=== PATIENT | male | born 1935 | race Caucasian/White ===

== ENCOUNTER 2017-06-12 06:15 | Emergency (ER) | payer MEDICARE ==
[~2017-06-12 06:15] MED LIST: ASCO100033 PO; ASPI-555 PO; CLOP75TA14 PO; DOXY100T2 PO; ESOM40CA PO; FLAX OIL PO; FURO40TA5 PO; GINK120C PO; IBUP1TAB71 PO; KRIL1CAP12 PO; LACT100C2 PO; LEVO100T12 PO; MAGN500P34 MC; MELA10TA2 PO; METO50TA9 PO; OMEGA PO; POTA10CA44 PO; PYRI25TA3 PO; RAMI2.5C15 PO; ROSU10TA PO; SOTA80TA PO; TEMA30CA PO; UBID200C18 PO; [UNRECOGNIZED DRUG - CODE] PO
[2017-06-12] MEDS ORDERED: SODIUM CHLORIDE 0.9% 1000ML 1,000 ML IV ONE (07:18)
[2017-06-12] MEDS ORDERED: METOCLOPRAMIDE 10 MG/2 ML VIAL ONE (07:18)
[2017-06-12 07:39] LABS: BASOPHILS % (AUTO) 0.2 % (0.0-5.0); EOSINOPHILS % (AUTO) 0.3 % (0.0-8.0); HEMATOCRIT 38.4 % (42-54); MEAN CORPUSCULAR HEMOGLOBIN 30.8 pg (27.0-33.0); MEAN CORPUSCULAR HGB CONC 33.8 g/dL (32.0-36.0); MEAN CORPUSCULAR VOLUME 91.3 fL (79-99); MONOCYTES % (AUTO) 6.4 % (3.0-13.0); NEUTROPHILS % (AUTO) 87.1 % (40.0-77.0); PLATELET COUNT (AUTO) 149 K/uL (130-400); RED BLOOD CELL COUNT(AUTO) 4.21 MIL/uL (4.50-6.20); RED CELL DISTRIBUTION WIDTH 15.4 % (11.0-15.5); WHITE BLOOD COUNT (AUTO) 13.4 K/uL (4.8-10.8)
[2017-06-12 07:48] LABS: CREATININE 1.5 mg/dL (0.5-1.5); POTASSIUM 3.5 mmol/L (3.5-5.1)
[2017-06-12 07:52] LABS: ALBUMIN 3.3 g/dL (3.5-5.0); BILIRUBIN,TOTAL 1.6 mg/dL (0.2-1.0); TOTAL PROTEIN, SERUM 6.5 g/dL (6.0-8.3)
[2017-06-12 08:22] LABS: APPEARANCE,URINE Cloudy (CLEAR); BILIRUBIN,URINE Negative (NEGATIVE); COLOR,URINE Dark Yellow (YELLOW); GLUCOSE, URINE (UA) Negative (NEGATIVE); KETONES,URINE Trace mg/dL (NEGATIVE); LEUKOCYTE ESTERASE ,URINE Large (NEGATIVE); NITRATE,URINE Positive (NEGATIVE); OCCULT BLOOD,URINE Large (NEGATIVE); PROTEIN,URINE POS 1+ (NEGATIVE)
[2017-06-12 08:41] LABS: BACTERIA,URINE Many /HPF (None Seen); WBC,URINE 26-50 /HPF (0-1)
[2018-02-24] MEDS ORDERED: NITR0.4T50 SL (10:12)
[2018-02-24] MEDS ORDERED: CILO100T PO (10:12)
[2018-02-24] MEDS ORDERED: [UNRECOGNIZED DRUG - CODE] PO (10:12)
== END 2017-06-12 09:54 | disposition home or self-care (01) ==
LOC: EDH 06:15
DX: N39.0 Urinary tract infection, site not specified (principal); R51 Headache; E78.5 Hyperlipidemia, unspecified; Z87.891 Personal history of nicotine dependence
CPT/HCPCS: 36415; 70450; 72125; 80053; 81001; 85025; 87088; 87186; 96361; 96374; 99285; J2765; J7030

== ENCOUNTER 2017-09-03 21:46 | Emergency (ER) | payer MEDICARE ==
[2017-09-03] MEDS ORDERED: ACETAMINOPHEN EXTRA STRENGTH 500 MG TABLET ONE (22:15)
[2017-09-03] MEDS ORDERED: SODIUM CHLORIDE 0.9% 1000ML 1,000 ML IV ONE (22:15)
[2017-09-03 22:17] LABS: BASOPHILS % (AUTO) 0.2 % (0.0-5.0); EOSINOPHILS % (AUTO) 2.3 % (0.0-8.0); HEMATOCRIT 35.4 % (42-54); MEAN CORPUSCULAR HEMOGLOBIN 32.8 pg (27.0-33.0); MEAN CORPUSCULAR HGB CONC 35.4 g/dL (32.0-36.0); MEAN CORPUSCULAR VOLUME 92.6 fL (79-99); MONOCYTES % (AUTO) 8.1 % (3.0-13.0); NEUTROPHILS % (AUTO) 80.4 % (40.0-77.0); NUCLEATED RED BLOOD CELLS 0.1 % (0.0-0.19); PLATELET COUNT (AUTO) 130 K/uL (130-400); RED BLOOD CELL COUNT(AUTO) 3.82 MIL/uL (4.50-6.20); RED CELL DISTRIBUTION WIDTH 15.5 % (11.0-15.5); WHITE BLOOD COUNT (AUTO) 9.3 K/uL (4.8-10.8)
[2017-09-03 22:31] LABS: CREATININE 1.4 mg/dL (0.5-1.5); POTASSIUM 3.5 mmol/L (3.5-5.1)
[2017-09-03] MEDS ORDERED: OSELTAMIVIR PHOSPHATE 75 MG CAP ONE (23:10)
[2018-02-24] MEDS ORDERED: [UNRECOGNIZED DRUG - CODE] PO (10:12)
[2018-02-24] MEDS ORDERED: NITR0.4T50 SL (10:12)
[2018-02-24] MEDS ORDERED: CILO100T PO (10:12)
== END 2017-09-03 23:20 | disposition home or self-care (01) ==
LOC: EDH 21:46
DX: J11.1 Influenza due to unidentified influenza virus with other respiratory manifestations (principal); R11.0 Nausea; E78.5 Hyperlipidemia, unspecified; I25.10 Atherosclerotic heart disease of native coronary artery without angina pectoris; Z95.0 Presence of cardiac pacemaker
CPT/HCPCS: 36415; 71046; 80048; 83605; 84484; 85025; 87804 ×2; 96360; 99285; J7030

== ENCOUNTER → 2017-09-08 | Outpatient (CLI) | payer MEDICARE ==
[~2017-09-08] MED LIST changes: +CILO100T PO; +NITR0.4T50 SL; +[UNRECOGNIZED DRUG - CODE] PO
== END | disposition home or self-care (01) ==
LOC: SHCH 10:29
PROVIDERS: ATTEND Internal Medicine Cardiovascular Disease
DX: I25.10 Atherosclerotic heart disease of native coronary artery without angina pectoris (principal)
CPT/HCPCS: 93880

== ENCOUNTER → 2018-01-29 | Outpatient (CLI) | payer MEDICARE ==
[~2018-01-29] MED LIST changes: +REGADENOSON 0.4 MG/5 ML PF SYG IVP SCH
== END | disposition home or self-care (01) ==
LOC: SHCH 07:45
PROVIDERS: ATTEND Internal Medicine Cardiovascular Disease
DX: I25.119 Atherosclerotic heart disease of native coronary artery with unspecified angina pectoris (principal); R94.31 Abnormal electrocardiogram [ECG] [EKG]
CPT/HCPCS: 78452; 93017; 96374; A9500 ×2; J2785 ×2

== ENCOUNTER → 2018-02-03 | Outpatient (CLI) | payer MEDICARE ==
[~2018-02-03] MED LIST changes: -REGADENOSON 0.4 MG/5 ML PF SYG IVP SCH
== END | disposition home or self-care (01) ==
LOC: SHCH 09:21
PROVIDERS: ATTEND Internal Medicine Cardiovascular Disease
DX: I08.1 Rheumatic disorders of both mitral and tricuspid valves (principal); I25.10 Atherosclerotic heart disease of native coronary artery without angina pectoris; R94.31 Abnormal electrocardiogram [ECG] [EKG]
CPT/HCPCS: 93306

== ENCOUNTER 2018-02-25 05:48 | Day surgery (SDC) | payer MEDICARE ==
[2018-02-24 09:47] VITALS: BP 124/70
[2018-02-24 09:55] LABS: BASOPHILS % (AUTO) 0.7 % (0.0-5.0); EOSINOPHILS % (AUTO) 3.2 % (0.0-8.0); HEMATOCRIT 41.9 % (42-54); LYMPHOCYTES % (AUTO) 18.3 % (21.0-51.0); MEAN CORPUSCULAR HEMOGLOBIN 32.5 pg (27.0-33.0); MEAN CORPUSCULAR HGB CONC 34.4 g/dL (32.0-36.0); MEAN CORPUSCULAR VOLUME 94.6 fL (79-99); MONOCYTES % (AUTO) 10.1 % (3.0-13.0); NEUTROPHILS % (AUTO) 67.7 % (40.0-77.0); NUCLEATED RED BLOOD CELLS 0.1 % (0.0-0.19); PLATELET COUNT (AUTO) 181 K/uL (130-400); RED BLOOD CELL COUNT(AUTO) 4.43 MIL/uL (4.50-6.20); RED CELL DISTRIBUTION WIDTH 15.1 % (11.0-15.5); WHITE BLOOD COUNT (AUTO) 8.7 K/uL (4.8-10.8)
[2018-02-24 09:56] LABS: APPEARANCE,URINE Clear (CLEAR); BILIRUBIN,URINE Negative (NEGATIVE); COLOR,URINE Yellow (YELLOW); GLUCOSE, URINE (UA) Negative (NEGATIVE); KETONES,URINE Negative (NEGATIVE); LEUKOCYTE ESTERASE ,URINE Trace (NEGATIVE); NITRATE,URINE Negative (NEGATIVE); OCCULT BLOOD,URINE Negative (NEGATIVE); PH,URINE 5.5 (5.0-8.0); PROTEIN,URINE Negative (NEGATIVE); UROBILINOGEN,URINE 0.2 mg/dL (0.2-1.0)
[2018-02-24 10:06] LABS: CREATININE 1.5 mg/dL (0.5-1.5); POTASSIUM 4.9 mmol/L (3.5-5.1)
[2018-02-24 10:08] LABS: INR 1.08 (0.85-1.15); PARTIAL THROMBOPLASTIN TIME 25.2 SEC (26.3-35.5); PROTHROMBIN TIME 11.3 SEC (9.6-11.6)
[2018-02-24 10:09] LABS: RBC,URINE 0-1 /HPF (0-1)
[2018-02-24 10:10] LABS: BACTERIA,URINE None Seen /HPF (None Seen); SQUAMOUS EPITHELIAL CELL,UR 0-2 /HPF (0-2); WBC,URINE 0-1 /HPF (0-1)
[2018-02-25] VITALS (12 sets, daily range): BP systolic 91–120; BP diastolic 50–67
[~2018-02-25] VITALS: Ht 175.3 cm; Wt 67.0 kg
[~2018-02-25 05:48] MED LIST changes: +ACETAMINOPHEN 325 MG TAB PO PRN; -ASCO100033 PO; -ESOM40CA PO; -FLAX OIL PO; -GINK120C PO; -IBUP1TAB71 PO; -KRIL1CAP12 PO; -LACT100C2 PO; -LEVO100T12 PO; -MAGN500P34 MC; -MELA10TA2 PO; -OMEGA PO; -PYRI25TA3 PO; +SODIUM CHLORIDE 0.9% 500ML 500 ML IV SCH; -UBID200C18 PO
[2018-02-25] MEDS ORDERED: SODIUM CHLORIDE 0.9% 1000ML 1,000 ML IV ONE (06:15)
[2018-02-25] MEDS ORDERED: SODIUM BICARB 50MEQ 50ML VIAL ONE (09:23)
[2018-02-25] MEDS ORDERED: LIDOCAINE HCL-MPF 2% 5ML VIAL ONE (09:23)
[2018-02-25] MEDS ORDERED: IOHEXOL-350 50ML VIAL IV ONE (09:23)
[2018-02-25] MEDS ORDERED: IOHEXOL 350 MG/ML 100ML INFUS..BTL IV ONE ×2 (09:23→10:31)
[2018-02-25] MEDS ORDERED: NITROGLYCERIN 5 MG/ML 10 ML VIAL IV ONE (09:23)
[2018-02-25] MEDS ORDERED: MIDAZOLAM HCL 1 MG/ML 2ML VIAL ONE ×2 (09:59→10:13)
[2018-02-25] MEDS ORDERED: MEPERIDINE-PF 25 MG/ML SYG ONE ×2 (09:59→10:12)
[2018-02-25] MEDS ORDERED: NITROGLYCERIN 0.4 MG SL TAB SL PRN (10:45)
[2018-02-25] MEDS ORDERED: SODIUM CHLORIDE 0.9% 1000ML 1,000 ML IV SCH (10:45)
[2018-02-25] MEDS ORDERED: CILOSTAZOL 100 MG TAB PO SCH (16:30)
[2018-02-25] MEDS ORDERED: SOTALOL HCL 80 MG TABLET PO SCH (21:00)
[2018-02-25] MEDS ORDERED: CLOPIDOGREL BISULFATE 75 MG TAB PO SCH (21:00)
[2018-02-25] MEDS ORDERED: TEMAZEPAM 30 MG CAP PO SCH (21:00)
[2018-02-25] MEDS ORDERED: DOXYCYCLINE HYCLATE 100 MG TABLET PO SCH (21:00)
[2018-02-26] MEDS ORDERED: FUROSEMIDE 40 MG TABLET PO SCH (09:00)
[2018-02-27] MEDS ORDERED: ASPIRIN 81 MG EC TAB PO SCH (09:00)
== END 2018-02-25 15:05 | disposition home or self-care (01) ==
LOC: DAH 05:48
PROVIDERS: ATTEND Internal Medicine Cardiovascular Disease
DX: I25.708 Atherosclerosis of coronary artery bypass graft(s), unspecified, with other forms of angina pectoris (principal); I73.9 Peripheral vascular disease, unspecified; Z98.890 Other specified postprocedural states; I10 Essential (primary) hypertension; E78.5 Hyperlipidemia, unspecified; I25.5 Ischemic cardiomyopathy; M51.17 Intervertebral disc disorders with radiculopathy, lumbosacral region; Z95.1 Presence of aortocoronary bypass graft; E03.9 Hypothyroidism, unspecified; Z79.899 Other long term (current) drug therapy; I47.2 Ventricular tachycardia
CPT/HCPCS: 36415; 71045; 80048; 81001; 85025; 85610; 85730; 93005; 93455; A4606; C1760; C1769; C1894; J1644; J2175 ×2; J2250 ×2; J3490 ×3; J7030; Q9965; Q9967 ×2; 93459; 99156; 99157

== ENCOUNTER 2018-12-01 18:46 | Emergency (ER) | payer MEDICARE ==
[~2018-12-01 18:46] MED LIST changes: -ACETAMINOPHEN 325 MG TAB PO PRN; +PANT40TA PO; -RAMI2.5C15 PO; +RAMI2.5C16 PO; -ROSU10TA PO; +ROSU10TA22 PO; -SODIUM CHLORIDE 0.9% 500ML 500 ML IV SCH; +TYL3 PO
[2018-12-01 19:22] LABS: BASOPHILS % (AUTO) 0.5 % (0.0-5.0); EOSINOPHILS % (AUTO) 2.9 % (0.0-8.0); HEMATOCRIT 38.5 % (42-54); LYMPHOCYTES % (AUTO) 20.8 % (21.0-51.0); MEAN CORPUSCULAR HEMOGLOBIN 32.5 pg (27.0-33.0); MONOCYTES % (AUTO) 10.7 % (3.0-13.0); NEUTROPHILS % (AUTO) 65.1 % (40.0-77.0); NUCLEATED RED BLOOD CELLS 0.1 % (0.0-0.19); PLATELET COUNT (AUTO) 148 K/uL (130-400); RED BLOOD CELL COUNT(AUTO) 4.14 MIL/uL (4.50-6.20); RED CELL DISTRIBUTION WIDTH 14.8 % (11.0-15.5); WHITE BLOOD COUNT (AUTO) 4.7 K/uL (4.8-10.8)
[2018-12-01 19:33] LABS: CREATININE 1.5 mg/dL (0.5-1.5)
[2018-12-01 19:40] LABS: ALBUMIN 4.1 g/dL (3.5-5.0); BILIRUBIN,TOTAL 1.4 mg/dL (0.2-1.0)
[2018-12-01 19:45] LABS: INR 1.09 (0.85-1.15); PARTIAL THROMBOPLASTIN TIME 23.8 SEC (26.3-35.5); PROTHROMBIN TIME 11.4 SEC (9.6-11.6)
[2018-12-01 20:08] LABS: B-TYPE NATRIURETIC PEPTIDE 264 pg/mL (0-100)
[2018-12-01 20:19] LABS: APPEARANCE,URINE Clear (CLEAR); BILIRUBIN,URINE Negative (NEGATIVE); COLOR,URINE Yellow (YELLOW); GLUCOSE, URINE (UA) Negative (NEGATIVE); KETONES,URINE Negative (NEGATIVE); LEUKOCYTE ESTERASE ,URINE Trace (NEGATIVE); NITRATE,URINE Negative (NEGATIVE); OCCULT BLOOD,URINE Negative (NEGATIVE); PROTEIN,URINE Negative (NEGATIVE)
[2018-12-01 20:35] LABS: BACTERIA,URINE None Seen /HPF (None Seen); RBC,URINE None Seen /HPF (0-1); SQUAMOUS EPITHELIAL CELL,UR None Seen /HPF (0-2); WBC,URINE 0-1 /HPF (0-1)
== END 2018-12-01 23:34 | disposition home or self-care (01) ==
LOC: EDH 18:46
DX: R19.7 Diarrhea, unspecified (principal); R00.2 Palpitations; I25.10 Atherosclerotic heart disease of native coronary artery without angina pectoris; E78.5 Hyperlipidemia, unspecified; Z95.1 Presence of aortocoronary bypass graft
CPT/HCPCS: 36415; 80053; 81001; 82150; 82550; 83690; 83735; 83880; 85025; 85610; 85730; 87804; 93005

== ENCOUNTER → 2019-01-08 | Outpatient (CLI) | payer MEDICARE | END | disposition home or self-care (01) | LOC: SHCH 07:42 | PROVIDERS: ATTEND Internal Medicine Cardiovascular Disease | DX: I25.119 Atherosclerotic heart disease of native coronary artery with unspecified angina pectoris (principal); I25.5 Ischemic cardiomyopathy; I73.9 Peripheral vascular disease, unspecified; Z95.1 Presence of aortocoronary bypass graft | CPT/HCPCS: 93975 ==

== ENCOUNTER → 2019-10-05 | Outpatient (CLI) | payer MEDICARE ==
[~2019-10-05] VITALS: Ht 175.3 cm; Wt 65.8 kg
[~2019-10-05] MED LIST changes: +REGADENOSON 0.4 MG/5 ML PF SYG IVP SCH
== END | disposition home or self-care (01) ==
LOC: SHCH 08:44
PROVIDERS: ATTEND Internal Medicine Cardiovascular Disease
DX: I51.7 Cardiomegaly (principal); I47.2 Ventricular tachycardia
CPT/HCPCS: 78452; 93017; 96374; A9500 ×2; J2785

== ENCOUNTER 2019-11-12 07:58 | Inpatient (IN) | payer MEDICARE ==
[2019-11-10 08:00] VITALS: BP 131/62
[2019-11-10 09:04] LABS: BASOPHILS % (AUTO) 0.7 % (0.0-5.0); EOSINOPHILS % (AUTO) 3.1 % (0.0-8.0); HEMATOCRIT 44.5 % (42-54); LYMPHOCYTES % (AUTO) 15.3 % (21.0-51.0); MEAN CORPUSCULAR HEMOGLOBIN 32.2 pg (27.0-33.0); MEAN CORPUSCULAR HGB CONC 32.4 g/dL (32.0-36.0); MEAN CORPUSCULAR VOLUME 99.6 fL (79-99); MONOCYTES % (AUTO) 12.2 % (3.0-13.0); NEUTROPHILS % (AUTO) 67.7 % (40.0-77.0); PLATELET COUNT (AUTO) 223 K/uL (130-400); RED BLOOD CELL COUNT(AUTO) 4.47 MIL/uL (4.50-6.20); RED CELL DISTRIBUTION WIDTH 14.6 % (11.0-15.5); WHITE BLOOD COUNT (AUTO) 6.1 K/uL (4.8-10.8)
[2019-11-10 09:22] LABS: CREATININE 1.3 mg/dL (0.5-1.5); POTASSIUM 4.4 mmol/L (3.5-5.1)
[2019-11-10 09:24] LABS: INR 1.01 (0.85-1.15); PARTIAL THROMBOPLASTIN TIME 28.1 SEC (26.3-35.5); PROTHROMBIN TIME 10.9 SEC (9.6-11.6)
[~2019-11-12] VITALS: Ht 167.6 cm; Wt 64.9 kg
[2019-11-12] VITALS (22 sets, daily range): BP systolic 117–162; BP diastolic 53–82
[~2019-11-12 07:58] MED LIST changes: +AMIO200T5 PO; -ASPI-555 PO; -CILO100T PO; -CLOP75TA14 PO; -DOXY100T2 PO; -FURO40TA5 PO; +MEXI150C2 PO; -NITR0.4T50 SL; -PANT40TA PO; -POTA10CA44 PO; -RAMI2.5C16 PO; -REGADENOSON 0.4 MG/5 ML PF SYG IVP SCH; -ROSU10TA22 PO; +SACU1TAB PO; +SODIUM CHLORIDE 0.9% 1000ML 1,000 ML IV SCH; -SOTA80TA PO; -TYL3 PO; -[UNRECOGNIZED DRUG - CODE] PO; -[UNRECOGNIZED DRUG - CODE] PO
[2019-11-12] MEDS ORDERED: HEPARIN SODIUM 1000UNIT/ML 10ML VIAL ONE ×2 (09:55→13:53)
[2019-11-12] MEDS ORDERED: LIDOCAINE HCL 2% 20ML ONE (09:55)
[2019-11-12] MEDS ORDERED: ROCURONIUM 10MG/1ML SYR 10 MG/ML ML ONE (10:34)
[2019-11-12] MEDS ORDERED: PROPOFOL 10 MG/ML 20ML VIAL IV ONE (10:34)
[2019-11-12] MEDS ORDERED: GLYCOPYRROLATE 1 MG/5 ML SYRINGE ONE (10:34)
[2019-11-12] MEDS ORDERED: MIDAZOLAM HCL 1 MG/ML 2ML VIAL ONE (10:34)
[2019-11-12] MEDS ORDERED: NEOSTIGMINE 5MG/5ML SYR IV ONE (10:34)
[2019-11-12] MEDS ORDERED: LIDOCAINE PF 2% 5ML ABBOJECT ONE (10:34)
[2019-11-12] MEDS ORDERED: FENTANYL CITRATE PF 50 MCG/1 ML 2ML VIAL ONE (10:35)
[2019-11-12] MEDS ORDERED: EPINEPHRINE 1 MG/ML AMPULE ONE (10:37)
[2019-11-12] MEDS ORDERED: SUCCINYLCHOLINE CHLORIDE 20 MG/ML 10 ML VIAL ONE (10:39)
[2019-11-12] MEDS ORDERED: PHENYLEPHRINE HCL 10 MG/ML 1ML VIAL IV ONE (11:08)
[2019-11-12] MEDS ORDERED: IOHEXOL-350 50ML VIAL IV ONE (16:02)
[2019-11-12] MEDS ORDERED: PROTAMINE SULFATE 10 MG/ML 25ML VIAL IV ONE (16:04)
--- NOTE | 2019-11-12 20:00 | NUR ---
SPOKE TO Conrad HIGGINBOTHAM REGARDING PT INCREASED NAUSEA S/P AICD. PT HAD GENERAL ANESTHESIA AND HAS HAD DIFFICULTY ADJUSTING SINCE PROCEDURE. ORDER FOR ZOFRAN GIVEN BY CRAFT DEMONSTRATOR. CRAFT DEMONSTRATOR CAME TO PERSONALLY SEE PT AND SPEAK TO FAMILY MEMBER. STARTED ON IV FLUIDS. AND WILL CONTINUE TO MONITOR AND EASE PT OUT OF BEDREST. RIGHT GROIN IS SOFT AND NON TENDER. NO BLEEDING OR HEMATOMA NOTED.
[2019-11-12] MEDS ORDERED: ONDANSETRON HCL 4 MG/2 ML VIAL ONE (20:08)
[2019-11-12] MEDS ORDERED: ACETAMINOPHEN 325 MG TAB PO PRN ×2 (20:15)
[2019-11-12] MEDS ORDERED: ONDANSETRON HCL 4 MG/2 ML VIAL IV PRN (20:15)
[2019-11-12] MEDS ORDERED: DIPHENHYDRAMINE HCL 25 MG CAPSULE PO PRN (20:15)
[2019-11-12] MEDS ORDERED: IPRATROPIUM/ALBUTEROL SULFATE 3 ML SOLUTION IH PRN (20:30)
[2019-11-12] MEDS ORDERED: SODIUM CHLORIDE 0.9% 500ML 500 ML IV SCH (20:45)
[2019-11-12] MEDS ORDERED: PROMETHAZINE HCL 25 MG/ML 1ML AMPULE IM PRN (20:45)
[2019-11-12] MEDS: (Sacubitril/Valsartan (Entresto 24 mg-26 mg Tablet) PO SCH (21:00)
[2019-11-12] MEDS: METOPROLOL SUCCINATE 50 MG TAB.SR.24H PO SCH (21:00)
[2019-11-12 21:43] LABS: BILIRUBIN,TOTAL 0.8 mg/dL (0.2-1.0); CREATININE 1.2 mg/dL (0.5-1.5); TOTAL PROTEIN, SERUM 5.8 g/dL (6.0-8.3)
[2019-11-12] MEDS: AMIODARONE HCL 200 MG TABLET PO SCH (22:19)
[2019-11-12] MEDS: TEMAZEPAM 30 MG CAP PO SCH (22:19)
[2019-11-12] MEDS: FAMOTIDINE/PF 20 MG/2 ML VIAL IV SCH (22:20)
[2019-11-13] VITALS: BP 132/65
[2019-11-13] MEDS: NITROGLYCERIN 0.4 MG SL TAB SL PRN ×2 (01:54→02:16)
--- NOTE | 2019-11-13 02:00 | NUR ---
CHEST PAIN STATED, LEVEL 6 OUT OF 10. MIDSTERNAL PAIN. GIVEN NITRO X2. DID NOT HELP THE PAIN. IV FLUIDS STOPPED. HOSPITALIST NOTIFIED. ORDERED EKG NOW INSTEAD OF 5AM. CARDIAC PANEL. AND NITRO TO BE GIVEN SL. PT STATED HEADACHE AFTER NITRO. REFUSED TYLENOL PRN.
[2019-11-13 03:47] LABS: TROPONIN I 15.29 ng/mL (0.00-0.06)
--- NOTE | 2019-11-13 04:10 | NUR ---
CRITICAL TROP 15.[address] MENDOZA, STATED NORMAL AFTER PROCEDURE. STATED NOT TO CALL BACK REGARDING TROPONIN LEVELS. CARDIAC PANEL AT 0900. NOT TO CALL BACK IF ELEVATED.
[2019-11-13 04:22] VITALS: BP 149/61
--- NOTE | 2019-11-13 05:27 | NUR ---
PT REFUSED DAILY WEIGHT.
[2019-11-13 06:12] LABS: HEMATOCRIT 36.5 % (42-54); MEAN CORPUSCULAR HEMOGLOBIN 32.3 pg (27.0-33.0); MEAN CORPUSCULAR HGB CONC 32.6 g/dL (32.0-36.0); MEAN CORPUSCULAR VOLUME 99.2 fL (79-99); PLATELET COUNT (AUTO) 152 K/uL (130-400); RED BLOOD CELL COUNT(AUTO) 3.68 MIL/uL (4.50-6.20); RED CELL DISTRIBUTION WIDTH 14.9 % (11.0-15.5); WHITE BLOOD COUNT (AUTO) 6.6 K/uL (4.8-10.8)
[2019-11-13 06:30] LABS: ALBUMIN 2.9 g/dL (3.5-5.0); BILIRUBIN,TOTAL 0.8 mg/dL (0.2-1.0); CREATININE 1.2 mg/dL (0.5-1.5); MAGNESIUM 1.9 mg/dL (1.80-2.40); POTASSIUM 4.1 mmol/L (3.5-5.1); TOTAL PROTEIN, SERUM 5.6 g/dL (6.0-8.3)
[2019-11-13 06:38] LABS: BAND NEUTROPHILS % (MANUAL) 1 % (0-2); LYMPHOCYTES % (MANUAL) 3 % (22-44); MAN.DIFF COMMENT-IMPRESSION MANUAL DIFFERENTIAL; MONOCYTES % (MANUAL) 9 % (2-9); PLATELET MORPHOLOGY COMMENT ADEQUATE; REACTIVE LYMPHOCYTES 1 % (0-0); SEGMENTED NEUTROPHILS % 86 % (40-70)
[2019-11-13 07:30] VITALS: BP 138/64
[2019-11-13] MEDS: METOPROLOL SUCCINATE 50 MG TAB.SR.24H PO SCH ×2 (07:33→21:00)
[2019-11-13] MEDS: FAMOTIDINE/PF 20 MG/2 ML VIAL IV SCH (07:33)
[2019-11-13] MEDS: AMIODARONE HCL 200 MG TABLET PO SCH ×2 (07:33→21:04)
[2019-11-13] MEDS: (Sacubitril/Valsartan (Entresto 24 mg-26 mg Tablet) PO SCH ×2 (07:37→21:04)
--- NOTE | 2019-11-13 08:00 | NUR ---
ASSESSMENT PT IS AAOX3 DENIES CP DENIES SOB DENIES NV NO COMPLAINTS AT THIS TIME SITTING UPRIGHT IN BED. AM MEDS GIVEN AND TAKEN WITH NO ISSUES, ATE BREAKFAST. NO GAGGING NO COUGHING NO HEADACHES NO SLURRED SPEECH. NO WEAKNESS EXPRESSED BY PATIENT. NOTED RIGHT EYE IS SLIGHTLY OFF IN ALIGNMENT WHEN COMPARED TO LEFT EYE, DENIES SEE VISUAL DISTURBANCES, DENIES ANY EYE PRESSURE OR LIGHT SENSITIVITY. WILL REPORT TO MD ON ROUNDS. CALL LIGHT WITHIN REACH. FAMILY IS AT BEDSIDE.
[2019-11-13 10:24] LABS: TROPONIN I 12.07 ng/mL (0.00-0.06)
[2019-11-13 11:30] VITALS: BP 136/67
--- NOTE | 2019-11-13 13:00 | NUR ---
Alejandro GARSIA SAW PATIENT, ORDERS RECEIVED.
--- NOTE | 2019-11-13 15:12 | NUR ---
GALICIA CATH DCD CATH TIP INTACT, DTV IN 8HRS
[2019-11-13 15:30] VITALS: BP 144/75
--- NOTE | 2019-11-13 16:21 | NUR ---
cm note met with patient and states resides at home with spouse, independent with adls, uses walker and cane for ambulation. pt drives. states dc plan is back to home at time of dc. no dc needs. Addendum: 11/13/19 at 1624 by MICHEL FAGAN CM Amended: Links added.
--- NOTE | 2019-11-13 18:00 | NUR ---
MD ROUNDS DR VELAZQUEZ AND DR MENDOZA ROUNDED. SAW PATIENT, ORDERS RECEIVED.
--- NOTE | 2019-11-13 20:00 | NUR ---
LEFT EYE DEVIATED TO THE UPPER LEFT. 2MM FIXED. RIGHT EYE 3MM SLUGGISH. BLURRY VISION, AT TIMES DOUBLE VISION. PT ALERT TO NAME, , AND LOCATION. PENDING TELE NEURO CONSULT. HAS WEAKNESS TO LOWER EXTREMITIES. UNSTEADY GAIT. STATES FEELING UNBALANCED EVEN WHEN MOVING. HAS EYE PATCH TO LEFT EYE. PURCHASED. NO PAIN STATED. PT PENDING CT ANGIO HEAD AND NECK.
[2019-11-13 20:31] VITALS: BP 139/50
[2019-11-13] MEDS: TEMAZEPAM 30 MG CAP PO SCH (21:04)
[2019-11-14] VITALS: BP 136/68
--- NOTE | 2019-11-14 01:13 | NUR ---
SOC CONSULT AT THIS TIME.
--- NOTE | 2019-11-14 01:55 | NUR ---
RADIOLOGY AWARE OF PT NOW ACCEPTING TO HAVE CT ANGIO.
[2019-11-14 04:00] VITALS: BP 127/61
[2019-11-14 04:52] LABS: BASOPHILS % (AUTO) 0.6 % (0.0-5.0); EOSINOPHILS % (AUTO) 3.7 % (0.0-8.0); HEMATOCRIT 33.7 % (42-54); LYMPHOCYTES % (AUTO) 15.8 % (21.0-51.0); MEAN CORPUSCULAR HEMOGLOBIN 32.2 pg (27.0-33.0); MEAN CORPUSCULAR HGB CONC 32.9 g/dL (32.0-36.0); MEAN CORPUSCULAR VOLUME 97.7 fL (79-99); MONOCYTES % (AUTO) 12.1 % (3.0-13.0); NEUTROPHILS % (AUTO) 67.2 % (40.0-77.0); PLATELET COUNT (AUTO) 147 K/uL (130-400); RED BLOOD CELL COUNT(AUTO) 3.45 MIL/uL (4.50-6.20); RED CELL DISTRIBUTION WIDTH 14.6 % (11.0-15.5); WHITE BLOOD COUNT (AUTO) 5.1 K/uL (4.8-10.8)
[2019-11-14 05:05] LABS: CREATININE 1.2 mg/dL (0.5-1.5); POTASSIUM 3.7 mmol/L (3.5-5.1)
[2019-11-14 07:20] LABS: HEMOGLOBIN A1C 5.6 % (4.0-6.0)
[2019-11-14] MEDS ORDERED: IOHEXOL-350 75 ML VIAL IV ONE (07:21)
[2019-11-14] MEDS: AMIODARONE HCL 200 MG TABLET PO SCH ×2 (07:50→21:27)
[2019-11-14] MEDS: METOPROLOL SUCCINATE 50 MG TAB.SR.24H PO SCH ×2 (07:50→21:27)
[2019-11-14] MEDS: FAMOTIDINE/PF 20 MG/2 ML VIAL IV SCH (07:50)
[2019-11-14] MEDS: (Sacubitril/Valsartan (Entresto 24 mg-26 mg Tablet) PO SCH ×2 (07:51→21:00)
[2019-11-14 08:00] VITALS: BP 132/70
--- NOTE | 2019-11-14 08:00 | NUR ---
ASSESSMENT PT IS AAOX3 DENIES CP DENIES SOB DENIES NV NO COMPLAINTS AT THIS TIME SITTING UPRIGHT IN BED. AM MEDS GIVEN NO COMPLAINTS, EATING BREAKFAST WITH SPOUSE AT BEDSIDE NO COMPLAINTS. NO SLURRED SPEECH NO CHOKING NO GAGGING NOTED. CALL LIGHT WITHIN REACH.
[2019-11-14 09:19] LABS: ALBUMIN 2.8 g/dL (3.5-5.0); BILIRUBIN,TOTAL 0.6 mg/dL (0.2-1.0); THYROID STIMULATING HORMONE 17.06 uIU/mL (0.36-3.74); TOTAL PROTEIN, SERUM 5.5 g/dL (6.0-8.3)
--- NOTE | 2019-11-14 10:55 | NUR ---
REGARDING DVT PROPHYLAXIS / ASA RECOMMENDATIONS FROM TELE NUEROLOGY I ASKED DR MENDOZA REGARDING DVT PROPHYLAXIS / ASA, STATES WAIT FOR DR SOLIS REGARDING ASA. HOSPITALIST TO DECIDE ON DVT PROPHYLAXIS
[2019-11-14 11:30] VITALS: BP 133/71
[2019-11-14 15:30] VITALS: BP 131/69
[2019-11-14 20:10] VITALS: BP 145/73
[2019-11-14] MEDS: TEMAZEPAM 30 MG CAP PO SCH (21:27)
[2019-11-15] VITALS: BP 137/71
[2019-11-15 04:00] VITALS: BP 124/64
[2019-11-15 04:53] LABS: BASOPHILS % (AUTO) 0.6 % (0.0-5.0); EOSINOPHILS % (AUTO) 5.1 % (0.0-8.0); HEMATOCRIT 33.5 % (42-54); LYMPHOCYTES % (AUTO) 17.1 % (21.0-51.0); MEAN CORPUSCULAR HEMOGLOBIN 31.8 pg (27.0-33.0); MEAN CORPUSCULAR HGB CONC 32.8 g/dL (32.0-36.0); MEAN CORPUSCULAR VOLUME 96.8 fL (79-99); MONOCYTES % (AUTO) 12.6 % (3.0-13.0); NEUTROPHILS % (AUTO) 63.8 % (40.0-77.0); PLATELET COUNT (AUTO) 151 K/uL (130-400); RED BLOOD CELL COUNT(AUTO) 3.46 MIL/uL (4.50-6.20); RED CELL DISTRIBUTION WIDTH 14.6 % (11.0-15.5); WHITE BLOOD COUNT (AUTO) 5.1 K/uL (4.8-10.8)
[2019-11-15] MEDS: METOPROLOL SUCCINATE 50 MG TAB.SR.24H PO SCH ×2 (08:15→20:23)
[2019-11-15] MEDS: AMIODARONE HCL 200 MG TABLET PO SCH ×2 (08:15→20:24)
[2019-11-15] MEDS: FAMOTIDINE/PF 20 MG/2 ML VIAL IV SCH (08:15)
[2019-11-15 08:16] VITALS: BP 127/67
[2019-11-15] MEDS: (Sacubitril/Valsartan (Entresto 24 mg-26 mg Tablet) PO SCH ×2 (08:23→20:25)
--- NOTE | 2019-11-15 09:30 | NUR ---
DYSPHAGIA EVAL COMPLETED. -S/S OF ASPIRATION. RECOMMEND REGULAR TEXTURE, THIN LIQUIDS; PILLS WHOLE WITH LIQUIDS. Addendum: 11/15/19 at 1147 by REBEKA BELCHER, [facility] Amended: Links added.
--- NOTE | 2019-11-15 09:55 | NUR ---
NEURO CONSULT SPOKE TO DR GILLETTE VIA TELEPHONE AT THIS TIME; STATED HE WILL SEE PATIENT LATER TODAY
--- NOTE | 2019-11-15 10:00 | NUR ---
PATIENT REFUSING TO HAVE PHYSICAL THERAPY DONE AT THIS TIME AND ALSO REFUSES TO SIGN REFUSAL FORM; MD TO BE NOTIFIED ON ROUNDS.
--- NOTE | 2019-11-15 11:30 | NUR ---
DR GILLETTE UPDATED ON PATIENT STATUS AND PATIENT SEEN AT BEDSIDE; WRITTEN NOTES IN CHART
[2019-11-15 11:51] LABS: TROPONIN I 4.82 ng/mL (0.00-0.06)
[2019-11-15] MEDS: ASPIRIN 81 MG EC TAB PO SCH (12:11)
[2019-11-15] MEDS: APIXABAN 5 MG TABLET PO SCH ×2 (12:11→20:25)
[2019-11-15 12:51] VITALS: BP 136/71
--- NOTE | 2019-11-15 15:52 | NUR ---
HUSSEIN PLAN GOT ORDER FOR SNF PATIENT JUST STEPPED INTO SHOWER. MASON WILL CONTINUE TO FOLLOW. Addendum: 11/15/19 at 1555 by MONTANA RIVERA RN CM Amended: Links added.
[2019-11-15 16:20] VITALS: BP 125/63
[2019-11-15 18:49] VITALS: BP 142/73
[2019-11-15] MEDS: TEMAZEPAM 30 MG CAP PO SCH (20:23)
--- NOTE | 2019-11-15 23:30 | NUR ---
PATIENT ATTEMPTING TO CRAWL OUT OF BED. PATIENT APPEARS CONFUSED. WANTS TO KNOW WHERE HIS CAR IS AND WANTS DAIRY HELPER TO DRIVE HIM HOME. ATTEMPTED TIMES 3 TO REORIENTATE PATIENT WITH MINIMAL SUCCESS AND STRESS IMPORTANCE OF CALLING FOR ASSISTANCE. PATIENT BECAME AGITATED. WAS SUCCESSFUL IN CALMING PATIENT DOWN AND PATIENT RETURNED TO BED. BED ALARM ON AND CALL MCGOVERN WITHIN REACH.
[2019-11-16] VITALS: BP 148/73
[2019-11-16 03:21] VITALS: BP 107/58
[2019-11-16 03:40] LABS: BASOPHILS % (AUTO) 0.8 % (0.0-5.0); EOSINOPHILS % (AUTO) 5.5 % (0.0-8.0); HEMATOCRIT 36.3 % (42-54); LYMPHOCYTES % (AUTO) 17.5 % (21.0-51.0); MEAN CORPUSCULAR HEMOGLOBIN 32.3 pg (27.0-33.0); MEAN CORPUSCULAR HGB CONC 33.6 g/dL (32.0-36.0); MONOCYTES % (AUTO) 11.6 % (3.0-13.0); NEUTROPHILS % (AUTO) 63.8 % (40.0-77.0); PLATELET COUNT (AUTO) 156 K/uL (130-400); RED BLOOD CELL COUNT(AUTO) 3.78 MIL/uL (4.50-6.20); RED CELL DISTRIBUTION WIDTH 14.3 % (11.0-15.5); WHITE BLOOD COUNT (AUTO) 5.1 K/uL (4.8-10.8)
[2019-11-16 03:59] LABS: ALBUMIN 2.8 g/dL (3.5-5.0); BILIRUBIN,TOTAL 0.5 mg/dL (0.2-1.0); CREATININE 1.1 mg/dL (0.5-1.5); POTASSIUM 3.5 mmol/L (3.5-5.1); TOTAL PROTEIN, SERUM 5.7 g/dL (6.0-8.3)
[2019-11-16 08:13] VITALS: BP 139/56
[2019-11-16] MEDS: APIXABAN 5 MG TABLET PO SCH (08:54)
[2019-11-16] MEDS: ASPIRIN 81 MG EC TAB PO SCH (08:54)
[2019-11-16] MEDS: METOPROLOL SUCCINATE 50 MG TAB.SR.24H PO SCH (08:54)
[2019-11-16] MEDS: AMIODARONE HCL 200 MG TABLET PO SCH (08:55)
[2019-11-16] MEDS: (Sacubitril/Valsartan (Entresto 24 mg-26 mg Tablet) PO SCH (08:55)
[2019-11-16] MEDS: FAMOTIDINE/PF 20 MG/2 ML VIAL IV SCH (08:55)
--- NOTE | 2019-11-16 10:10 | NUR ---
PT NOTE: PATIENT REQUIRES MOD/MIN ASSISTX2 FOR BED MOBILITY AND SAFE AMBULATION WITH RW. DURING AMBULATION PATIENT REQUIRES PHYSICAL GUIDANCE ON RW SECONDARY TO DIFFICULTY AMBULATING IN A STRAIGHT LINE. PATIENT WILL BENEFIT FROM CONTINUED PT TX TO PROMOTE SAFE AMBULATION AND TRANSFERS PRIOR TO D/C HOME. PATIENT/ EDUCATED ON THE IMPORTANCE REHAB TO REDUCE RISK OF FALLS AT HOME AND PROMOTE SAFE AMBULATION. Addendum: 11/16/19 at 1050 by GINO LUIS PT Amended: Links added.
--- NOTE | 2019-11-16 11:12 | NUR ---
HUSSEIN PLAN [facility]AC VISITED WITH PATIENT THIS MORNING. EXPLAINED TO PATIENT THAT HE DOES NOT QUALIFY FOR LTAC SERVICES. PATIENT DISAPPOINTED. WENT IN SPOKE TO PATIENT INTERESTED IN [facility]. PILAR SIGNED INFO SENT. LET REP KNOW WILL LEAVE BY 1130. I TRIED TO CALL REP EARLIER AT 900 TO LET THEM KNOW NO ANSWER. NO CALL BACK. CALLED AGAIN AT [address] CALLED RIGHT NOW SAID THEY ARE IN PARKING LOT. NOT SURE WILL MAKE IT BY THE TIME LEAVES. Addendum: 11/16/19 at 1116 by MONTANA RIVERA RN CM Amended: Links added.
[2019-11-16 11:43] VITALS: BP 126/63
--- NOTE | 2019-11-16 12:45 | NUR ---
DC ANALYST SALES VISITED WITH PATIENT. SAM TOLD PATIENT NO VISITORS STARTING TODAY. PATIENT NOT HAPPY. SAID THEY WILL THINK ABOUT IT. Addendum: 11/16/19 at 1246 by MONTANA RIVERA RN CM Amended: Links added.
[2019-11-16 16:10] VITALS: BP 141/69
[2019-11-16] MEDS ORDERED: AEC81 PO (16:12)
[2019-11-16] MEDS ORDERED: APIX5TAB PO (16:12)
--- NOTE | 2019-11-16 16:40 | NUR ---
PATIENT TO BE DISCHARGED HOME TODAY; PATIENT REFUSING TO BE PLACED IN REHAB AT THIS TIME, AND STATES HE WILL FOLLOW UP WITH PCP TO SEE IF PATIENT WILL QUALIFY FOR HOME HEALTH; PATIENT THREATENING TO LEAVE AMA IF DISCHARGE NOT COMPLETED SOON
--- NOTE | 2019-11-16 16:45 | NUR ---
DR SOLIS NOTIFIED THAT PATIENT WILL BE DISCHARGED TODAY WITHOUT PT/HOME HEALTH. FOLLOW UP APPT TO BE GIVEN UPON DC
--- NOTE | 2019-11-16 17:28 | NUR ---
PATIENT DISCHARGED HOME AT THIS TIME; STATES HE WILL FOLLOW UP WITH HIS PCP TO TRY TO GET HOME HEALTH FOR PT; DR VELAZQUEZ AND DR SOLIS AWARE; NEW PRESCRIPTIONS SENT TO PATIENT'S PHARMACY; ALL QUESTIONS ANSWERED AND DC INSTRUCTIONS GIVEN; PIV X2 REMOVED AND TELEPACK REMOVED
--- NOTE | 2019-11-17 10:39 | NUR ---
DC PLAN [facility] VISITED WITH PATIENT AND PATIENT DID NOT LIKE THE NO VISITORS. SPOKE TO PATIENT AND SPOUSE. DECIDED HOME WITH HOME HEALTH. EXPLAINED THAT I WOULD HAVE TO GET ORDER FROM MD'S IF NOT WOULD HAVE TO GO TO PRIMARY TO SEE. PRIMARY SAID NO FOLLOW UP WITH PRIMARY. TRIED TO SEE IF DR. SOLIS WOULD ORDER. PER NURSE NO CALL BACK. LET PATIENT KNOW THAT I DID NOT GET ORDER FOR HOME HEALTH. THEY WILL HAVE TO GO TO PRIMARY TO SET UP. VERBALIZED UNDERSTANDING. LET NURSE KNOW. Addendum: 11/17/19 at 1043 by MONTANA RIVERA RN CM Amended: Links added.
== END 2019-11-16 17:30 | disposition home or self-care (01) | DRG 273 ==
LOC: DAH 07:58 → DAHIP 07:59 → DAH 07:59 → OBSVTOIN 07:59 → 2AH 18:23
PROVIDERS: ADMIT Internal Medicine; ATTEND Internal Medicine
PROC: 02583ZZ Destruction of Conduction Mechanism, Percutaneous Approach (ICD-10-PCS; principal; 2019-11-12)
PROC: 02K83ZZ Map Conduction Mechanism, Percutaneous Approach (ICD-10-PCS; 2019-11-12)
DX: I47.2 Ventricular tachycardia (principal); I63.9 Cerebral infarction, unspecified; I48.91 Unspecified atrial fibrillation; H51.8 Other specified disorders of binocular movement; H53.2 Diplopia; I25.5 Ischemic cardiomyopathy; I25.10 Atherosclerotic heart disease of native coronary artery without angina pectoris; E03.9 Hypothyroidism, unspecified; E78.5 Hyperlipidemia, unspecified; H51.20 Internuclear ophthalmoplegia, unspecified eye; I10 Essential (primary) hypertension; I73.9 Peripheral vascular disease, unspecified; Z79.01 Long term (current) use of anticoagulants; Z79.82 Long term (current) use of aspirin; Z79.899 Other long term (current) drug therapy; Z95.810 Presence of automatic (implantable) cardiac defibrillator; Z95.1 Presence of aortocoronary bypass graft; Z91.81 History of falling; Z86.73 Personal history of transient ischemic attack (TIA), and cerebral infarction without residual deficits; Z83.3 Family history of diabetes mellitus; Z82.5 Family history of asthma and other chronic lower respiratory diseases; Z82.3 Family history of stroke; Z82.0 Family history of epilepsy and other diseases of the nervous system; Z82.49 Family history of ischemic heart disease and other diseases of the circulatory system
CPT/HCPCS: 36415; 70450; 70496; 70498; 80048; 80053; 80061; 82550; 83036; 83735; 83874; 84443; 84484; 85025; 85347; 85610; 85730; 92610; 93005; 93306; 93356; 93654; 94664; 97039; A4344; C1730; C1894; G0378; J0171; J0330; J1644; J2001; J2250; J2370; J2405; J2704; J2710; J2720; J3010; J3490; J7030; Q9967

== ENCOUNTER 2020-04-24 06:09 | Day surgery (SDC) | payer MEDICARE ==
[2020-04-24] VITALS (13 sets, daily range): BP systolic 75–114; BP diastolic 45–68
[~2020-04-24] VITALS: Ht 170.2 cm; Wt 66.7 kg
[~2020-04-24 06:09] MED LIST changes: +AEC81 PO; +CLOP75TA14 PO; +DOCU-133 PO; +DOXY100C2 PO; +ESCI10TA PO; +FURO20TA4 PO; +L.AC1CAP6 PO; +MAGN100T5 PO; +MELA1TAB17 PO; +MEXI150C17 PO; -MEXI150C2 PO; +NITR0.4T50 SL; +POTA10CA44 PO; +POTA99TA25 PO; +PRED10TA3 PO; +QUNOL; +ROSU10TA22 PO; -SODIUM CHLORIDE 0.9% 1000ML 1,000 ML IV SCH; +[UNRECOGNIZED DRUG - CODE] PO
[2020-04-24] MEDS ORDERED: SODIUM CHLORIDE 0.9% 1000ML 1,000 ML IV ONE (06:17)
[2020-04-24] MEDS ORDERED: LIDOCAINE HCL-MPF 2% 5ML VIAL ONE (06:53)
[2020-04-24] MEDS ORDERED: PROPOFOL 10 MG/ML 20ML VIAL IV ONE ×2 (06:53)
[2020-04-24] MEDS ORDERED: GLYCOPYRROLATE 1 MG/5 ML SYRINGE ONE (06:53)
[2020-04-24] MEDS ORDERED: PHENYLEPHRINE HCL 10 MG/ML 1ML VIAL IV ONE (07:03)
== END 2020-04-24 08:45 | disposition home or self-care (01) ==
LOC: ENDO 06:09 → DAH 06:09 → ENDO 08:45
PROVIDERS: ATTEND Internal Medicine
DX: K92.1 Melena (principal); R13.10 Dysphagia, unspecified; Z20.828 Contact with and (suspected) exposure to other viral communicable diseases; K44.9 Diaphragmatic hernia without obstruction or gangrene; K31.89 Other diseases of stomach and duodenum; K64.1 Second degree hemorrhoids; K64.4 Residual hemorrhoidal skin tags; K57.30 Diverticulosis of large intestine without perforation or abscess without bleeding; K29.51 Unspecified chronic gastritis with bleeding; K21.0 Gastro-esophageal reflux disease with esophagitis; D12.4 Benign neoplasm of descending colon; I10 Essential (primary) hypertension; K59.04 Chronic idiopathic constipation; G47.30 Sleep apnea, unspecified; R35.0 Frequency of micturition; I25.2 Old myocardial infarction; M19.90 Unspecified osteoarthritis, unspecified site; I25.10 Atherosclerotic heart disease of native coronary artery without angina pectoris; E03.9 Hypothyroidism, unspecified; E78.5 Hyperlipidemia, unspecified; Z95.0 Presence of cardiac pacemaker; Z79.899 Other long term (current) drug therapy; Z79.82 Long term (current) use of aspirin; Z79.01 Long term (current) use of anticoagulants; Z90.89 Acquired absence of other organs; Z98.49 Cataract extraction status, unspecified eye
CPT/HCPCS: 43239; 45385; 45398; 93005; A4215; A4221; A4222; A4223; A4606; A4620; A4657; A4663; C9803; J2370; J2704 ×2; J3490 ×2; J7030; U0003

== ENCOUNTER 2020-05-19 02:31 | Inpatient (IN) | payer MEDICARE ==
[2020-05-19] VITALS (54 sets, daily range): BP systolic 57–147; BP diastolic 28–88
[~2020-05-19] VITALS: Ht 170.2 cm; Wt 68.5 kg
[2020-05-19 03:09] LABS: BASOPHILS % (AUTO) 0.2 % (0.0-5.0); EOSINOPHILS % (AUTO) 0.2 % (0.0-8.0); HEMATOCRIT 29.6 % (42-54); LYMPHOCYTES % (AUTO) 5.2 % (21.0-51.0); MEAN CORPUSCULAR HEMOGLOBIN 31.1 pg (27.0-33.0); MEAN CORPUSCULAR HGB CONC 34.1 g/dL (32.0-36.0); MEAN CORPUSCULAR VOLUME 91.1 fL (79-99); MONOCYTES % (AUTO) 8.3 % (3.0-13.0); NEUTROPHILS % (AUTO) 85.4 % (40.0-77.0); PLATELET COUNT (AUTO) 293 K/uL (130-400); RED BLOOD CELL COUNT(AUTO) 3.25 MIL/uL (4.50-6.20); RED CELL DISTRIBUTION WIDTH 15.5 % (11.0-15.5); WHITE BLOOD COUNT (AUTO) 10.4 K/uL (4.8-10.8)
[2020-05-19 03:23] LABS: ALBUMIN 2.3 g/dL (3.5-5.0); CREATININE 1.5 mg/dL (0.5-1.5); TOTAL PROTEIN, SERUM 5.5 g/dL (6.0-8.3)
[2020-05-19 03:25] LABS: INR 1.26 (0.85-1.15); PARTIAL THROMBOPLASTIN TIME 27.6 SEC (26.3-35.5); PROTHROMBIN TIME 13.5 SEC (9.6-11.6)
[2020-05-19 03:29] LABS: B-TYPE NATRIURETIC PEPTIDE 1280 pg/mL (0-100)
[2020-05-19] MEDS ORDERED: AZITHROMYCIN 500MG+NS 250ML 250 ML IV ONE (03:29)
[2020-05-19] MEDS ORDERED: CEFTRIAXONE SODIUM 2 GM VIAL ONE (03:29)
[2020-05-19] MEDS ORDERED: ACETAMINOPHEN EXTRA STRENGTH 500 MG TABLET ONE (03:30)
[2020-05-19 03:31] LABS: POTASSIUM 2.9 mmol/L (3.5-5.1)
[2020-05-19] MEDS ORDERED: POTASSIUM BICARB/CIT AC 25 MEQ TABLET.EFF ONE (03:33)
[2020-05-19 03:35] LABS: ABG BASE EXCESS -0.3 mmol/L (-2.0-3.0); ABG OXYGEN SATURATION 91.5 % (95.0-99.0); ABG PCO2 39 mmHg (35-48)
[2020-05-19 03:44] LABS: CREATINE KINASE, TOTAL 69 U/L (21-232); MYOGLOBIN 138 ng/mL (10-92); TROPONIN I < 0.04 ng/mL (0.00-0.06)
[2020-05-19] MEDS ORDERED: ONDANSETRON HCL 4 MG/2 ML VIAL IV PRN (04:45)
[2020-05-19] MEDS ORDERED: DiphenhydrAMINE HCL 50 MG/ML VIAL IV PRN (04:45)
[2020-05-19] MEDS ORDERED: LIDOCAINE HCL 2% VISCOUS 30 ML, MAG HYDROX/AL HYDROX/SIMETH 30 ML, BELLADONNA-PHENOBARB... PO PRN ×3 (04:45)
[2020-05-19] MEDS ORDERED: ERGOCALCIFEROL (VITAMIN D2) 50,000 UNIT CAPSULE PO ONE (04:45)
[2020-05-19] MEDS ORDERED: ZOLPIDEM TARTRATE 5 MG TAB PO PRN (04:45)
[2020-05-19] MEDS ORDERED: LACTULOSE 20 GM/30 ML UDCUP PO PRN (04:45)
[2020-05-19] MEDS ORDERED: NITROGLYCERIN 0.4 MG SL TAB SL PRN (04:45)
[2020-05-19] MEDS ORDERED: MORPHINE SULFATE 2 MG/ML 1ML SYG IV PRN (04:45)
[2020-05-19] MEDS: CEFTRIAXONE SODIUM 1 GM IV SCH (04:45)
[2020-05-19] MEDS ORDERED: HYDRALAZINE HCL 20 MG/ML VIAL IV PRN (04:45)
[2020-05-19] MEDS ORDERED: MAG HYDROX/AL HYDROX/SIMETH 30 ML, LIDOCAINE HCL 2% VISCOUS 30 ML, DIPHENHYDRAMINE HCL ... PO PRN ×3 (04:45)
[2020-05-19] MEDS ORDERED: BENZONATATE 100 MG CAPSULE PO PRN (04:45)
[2020-05-19] MEDS ORDERED: MORPHINE SULFATE 4 MG/1ML SYG IV PRN (04:45)
[2020-05-19] MEDS: AZITHROMYCIN 500MG+NS 250ML 250 ML IV SCH (04:45)
[2020-05-19] MEDS ORDERED: DIPHENHYDRAMINE HCL 25 MG CAPSULE PO PRN (04:45)
[2020-05-19] MEDS ORDERED: GUAIFENESIN-DM 200/20 MG 10 ML PO PRN (04:45)
[2020-05-19] MEDS ORDERED: ACETAMINOPHEN 325 MG TAB PO PRN ×2 (04:45)
[2020-05-19] MEDS ORDERED: MAG HYDROX/AL HYDROX/SIMETH ES 30 ML SUSP UDCUP PO PRN (04:45)
[2020-05-19] MEDS ORDERED: ALBUTEROL INHALER 90MCG/INH IH PRN (05:00)
[2020-05-19] MEDS: IPRATROPIUM/ALBUTEROL SULFATE 3 ML SOLUTION IH SCH ×3 (06:00→21:45)
[2020-05-19] MEDS ORDERED: FUROSEMIDE 10 MG/ML 2ML VIAL ONE ×2 (06:12→16:48)
[2020-05-19] MEDS ORDERED: ERGOCALCIFEROL (VITAMIN D2) 50,000 UNIT CAPSULE ONE (06:12)
[2020-05-19 07:11] LABS: CREATINE KINASE, TOTAL 74 U/L (21-232); MYOGLOBIN 150 ng/mL (10-92); TROPONIN I < 0.04 ng/mL (0.00-0.06)
[2020-05-19 07:34] LABS: APPEARANCE,URINE Clear (CLEAR); BILIRUBIN,URINE Negative (NEGATIVE); COLOR,URINE Yellow (YELLOW); GLUCOSE, URINE (UA) Negative (NEGATIVE); KETONES,URINE Negative (NEGATIVE); LEUKOCYTE ESTERASE ,URINE Negative (NEGATIVE); NITRATE,URINE Negative (NEGATIVE); OCCULT BLOOD,URINE Negative (NEGATIVE); PH,URINE 6.5 (5.0-8.0); PROTEIN,URINE Negative (NEGATIVE)
[2020-05-19] MEDS ORDERED: HEPARIN SODIUM 5000UNIT/ML 1ML VIAL ONE (08:05)
[2020-05-19] MEDS ORDERED: ZINC SULFATE 220 CAPSULE ONE (08:05)
[2020-05-19] MEDS ORDERED: OSELTAMIVIR PHOSPHATE 75 MG CAP ONE (08:07)
[2020-05-19] MEDS ORDERED: FAMOTIDINE/PF 20 MG/2 ML VIAL IV ONE (08:07)
[2020-05-19] MEDS: FAMOTIDINE/PF 20 MG/2 ML VIAL IV SCH ×2 (09:00→21:21)
[2020-05-19] MEDS: ZINC SULFATE 220 CAPSULE PO SCH (09:00)
[2020-05-19] MEDS ORDERED: OSELTAMIVIR PHOSPHATE 75 MG CAP PO SCH (09:00)
[2020-05-19] MEDS: HEPARIN SODIUM 5000UNIT/ML 1ML VIAL SQ SCH ×3 (09:00→21:25)
[2020-05-19] MEDS ORDERED: AMIODARONE HCL 200 MG TABLET PO SCH (10:00)
[2020-05-19] MEDS: ASCORBIC ACID 500 MG TAB PO SCH (10:06)
[2020-05-19] MEDS: ATORVASTATIN CALCIUM 20 MG TABLET PO SCH ×2 (10:42→21:21)
[2020-05-19] MEDS: METOPROLOL SUCCINATE 50 MG TAB.SR.24H PO SCH ×2 (10:43→21:23)
--- NOTE | 2020-05-19 12:11 | NUR ---
Bruising noted to bilateral arms, hands and lower extremities. redness noted to sacrum area. sites blanchable. place mepilex cushion dressing to site. No skin tears or wounds noted to patient skin at this time. will continue to monitor as needed.
--- NOTE | 2020-05-19 14:15 | NUR ---
Received information during report that patient received Pepcid, Zinc, and heparin 5000 unit SQ. Medications showed due at 0900 and 1400 but were not given to patient due to patient receiving in the er. patient resting well with no problems. will continue to monitor during tour as needed.
[2020-05-19 14:16] LABS: CREATINE KINASE, TOTAL 73 U/L (21-232); MYOGLOBIN 152 ng/mL (10-92); TROPONIN I < 0.04 ng/mL (0.00-0.06)
[2020-05-19] MEDS ORDERED: FUROSEMIDE 10 MG/ML 10ML VIAL ONE (16:47)
[2020-05-19] MEDS: FUROSEMIDE 10 MG/ML 2ML VIAL IV SCH (17:27)
--- NOTE | 2020-05-19 17:50 | NUR ---
CM NOTE/IA UNABLE TO MEET WITH PATIENT IN ROOM, NEXT OF KIN CALLED, ALE ChurchillGal TESSA. 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 SPOUSE OPEN TO HOSPICE SERVICES. [facility] EMAILED TO ME, PRINTED FORMS AND FLAGGED IN CHART. CM TO FOLLOW UP FOR DCP. Addendum: 05/19/20 at 1803 by BILLY MURPHY RN CM Amended: Links added.
--- NOTE | 2020-05-19 19:05 | NUR ---
NURSE ARRIVE TO BEDSIDE FOR REPORT. PATIENT OXYGEN SATURATION 78% ON 4LNC, HR 71, BP 126/68. PATIENT ALERT AND ORIENTED. STATUS: FULL CODE. WILL CONTINUE TO MONITOR
--- NOTE | 2020-05-19 20:30 | NUR ---
ADVANCE DIRECTIVE FAXED BY CASE MANAGEMENT STATES PATIENT DOES NOT WISH TO HAVE LIFE SUSTAINING MEASURES AND WOULD LIKE TO CONTINUE CARE WITH HOSPICE AT HOME. NURSE CONFIRMED WITH PATIENT AT BEDSIDE OF PATIENT'S WISHES. PATIENT(GEORGETTE ZARATE .) ASKED NURSE TO CALL TO GET VERBAL CONSENT FOR DNR STATUS. NURSE CALLED SPOUSE(ALE ZARATE) FOR CONSENT. SPOUSE AGREED TO PATIENT'S WISHES. MD CALLED FOR CHANGE IN CODE STATUS.
[2020-05-19] MEDS: AMIODARONE HCL 200 MG TABLET PO SCH (21:21)
[2020-05-20] VITALS (73 sets, daily range): BP systolic 69–167; BP diastolic 21–85
[2020-05-20] MEDS: IPRATROPIUM/ALBUTEROL SULFATE 3 ML SOLUTION IH SCH ×5 (00:53→23:37)
[2020-05-20 04:06] LABS: ABG BASE EXCESS 4.4 mmol/L (-2.0-3.0); ABG HCO3 28.1 mmol/L (21.0-28.0); ABG OXYGEN SATURATION 78.4 % (95.0-99.0); ABG PCO2 39 mmHg (35-48)
[2020-05-20 04:13] LABS: BASOPHILS % (AUTO) 0.2 % (0.0-5.0); HEMATOCRIT 31.1 % (42-54); LYMPHOCYTES % (AUTO) 3.8 % (21.0-51.0); MEAN CORPUSCULAR HEMOGLOBIN 31.1 pg (27.0-33.0); MEAN CORPUSCULAR HGB CONC 34.1 g/dL (32.0-36.0); MEAN CORPUSCULAR VOLUME 91.2 fL (79-99); MONOCYTES % (AUTO) 6.4 % (3.0-13.0); NEUTROPHILS % (AUTO) 88.8 % (40.0-77.0); PLATELET COUNT (AUTO) 345 K/uL (130-400); RED BLOOD CELL COUNT(AUTO) 3.41 MIL/uL (4.50-6.20); RED CELL DISTRIBUTION WIDTH 15.8 % (11.0-15.5)
[2020-05-20] MEDS: AZITHROMYCIN 500MG+NS 250ML 250 ML IV SCH (04:28)
[2020-05-20] MEDS: CEFTRIAXONE SODIUM 1 GM IV SCH (04:28)
[2020-05-20 04:38] LABS: ALBUMIN 2.3 g/dL (3.5-5.0); CREATININE 1.5 mg/dL (0.5-1.5); MAGNESIUM 1.6 mg/dL (1.80-2.40); PHOSPHORUS 3.7 mg/dL (2.5-4.9); POTASSIUM 3.3 mmol/L (3.5-5.1); TOTAL PROTEIN, SERUM 5.7 g/dL (6.0-8.3)
[2020-05-20 04:44] LABS: CRP QUANTITATIVE 327.2 mg/L (0.00-9.0)
[2020-05-20] MEDS: FUROSEMIDE 10 MG/ML 2ML VIAL IV SCH ×2 (06:33→17:27)
[2020-05-20] MEDS ORDERED: FUROSEMIDE 10 MG/ML 2ML VIAL IV SCH (08:15)
[2020-05-20] MEDS: ASCORBIC ACID 500 MG TAB PO SCH (08:29)
[2020-05-20] MEDS: METOPROLOL SUCCINATE 50 MG TAB.SR.24H PO SCH ×2 (08:29→21:00)
[2020-05-20] MEDS: ZINC SULFATE 220 CAPSULE PO SCH (08:29)
[2020-05-20] MEDS: FAMOTIDINE/PF 20 MG/2 ML VIAL IV SCH ×2 (08:30→21:00)
[2020-05-20] MEDS: AMIODARONE HCL 200 MG TABLET PO SCH ×2 (08:30→21:00)
[2020-05-20] MEDS: CLOPIDOGREL BISULFATE 75 MG TAB PO SCH (08:30)
[2020-05-20] MEDS: HEPARIN SODIUM 5000UNIT/ML 1ML VIAL SQ SCH ×3 (08:34→21:00)
--- NOTE | 2020-05-20 08:46 | NUR ---
Noted confusion during morning tour. patient speaks of dog being here in room, a need to call 911 [facility] his medication as well as dr who writes his medication. patient sats in 70s while on 4-5L. appears sats improved once patient is not longer agitated. patient denies any chest pain at this time. will continue to monitor during tour. Bed on and activated. will continue to monitor during tour as needed.
[2020-05-20] MEDS: ZIPRASIDONE MESYLATE 20 MG/VIAL IM PRN (09:25)
--- NOTE | 2020-05-20 11:18 | NUR ---
Noted low blood pressures after geodon was given. patient sleeping and easily aroused during low blood pressures. patient states "i am very tired". recent blood pressure of 96/45 in right upper arm with heart rate of 70. will continue to monitor during tour as need.
[2020-05-20] MEDS ORDERED: MAGNESIUM 2GM PREMIX 50ML 50 ML IV SCH ×2 (12:00→16:30)
[2020-05-20] MEDS: PREDNISONE 20 MG TABLET PO SCH (14:01)
--- NOTE | 2020-05-20 14:51 | NUR ---
After approximately 1405--patient easily aroused and respond to painful stimuli. Non rebreather mask was removed to administer prednisone by mouth. patient responded well by swallowing meds with water. will continue to monitor as needed
[2020-05-20] MEDS: ATORVASTATIN CALCIUM 20 MG TABLET PO SCH (21:00)
[2020-05-21] VITALS (21 sets, daily range): BP systolic 98–151; BP diastolic 33–87
[2020-05-21 03:31] LABS: EOSINOPHILS % (AUTO) 2.1 % (0.0-8.0); HEMATOCRIT 28.9 % (42-54); LYMPHOCYTES % (AUTO) 4.8 % (21.0-51.0); MEAN CORPUSCULAR HEMOGLOBIN 30.4 pg (27.0-33.0); MEAN CORPUSCULAR HGB CONC 32.9 g/dL (32.0-36.0); MEAN CORPUSCULAR VOLUME 92.6 fL (79-99); MONOCYTES % (AUTO) 4.9 % (3.0-13.0); PLATELET COUNT (AUTO) 293 K/uL (130-400); RED BLOOD CELL COUNT(AUTO) 3.12 MIL/uL (4.50-6.20); RED CELL DISTRIBUTION WIDTH 15.8 % (11.0-15.5); WHITE BLOOD COUNT (AUTO) 8.4 K/uL (4.8-10.8)
[2020-05-21 03:45] LABS: ALBUMIN 2.1 g/dL (3.5-5.0); BILIRUBIN,TOTAL 0.6 mg/dL (0.2-1.0); CREATININE 1.6 mg/dL (0.5-1.5); MAGNESIUM 1.9 mg/dL (1.80-2.40); PHOSPHORUS 4.1 mg/dL (2.5-4.9); POTASSIUM 3.9 mmol/L (3.5-5.1); TOTAL PROTEIN, SERUM 5.4 g/dL (6.0-8.3)
[2020-05-21 04:00] LABS: CRP QUANTITATIVE 327.1 mg/L (0.00-9.0)
[2020-05-21] MEDS: CEFTRIAXONE SODIUM 1 GM IV SCH (05:31)
[2020-05-21] MEDS: FUROSEMIDE 10 MG/ML 2ML VIAL IV SCH ×2 (05:32→18:30)
[2020-05-21] MEDS: IPRATROPIUM/ALBUTEROL SULFATE 3 ML SOLUTION IH SCH ×3 (07:04→18:52)
[2020-05-21] MEDS ORDERED: DOXYCYCLINE 100MG+NS 250ML 250 ML IV SCH (08:45)
[2020-05-21] MEDS ORDERED: DEXMEDETOMIDINE HCL 400 MCG in SODIUM CHLORIDE 0.9% 96 ML IV PRN (09:00)
[2020-05-21] MEDS: HEPARIN SODIUM 5000UNIT/ML 1ML VIAL SQ SCH ×3 (09:00→21:00)
[2020-05-21] MEDS: CLOPIDOGREL BISULFATE 75 MG TAB PO SCH (09:55)
[2020-05-21] MEDS: ZINC SULFATE 220 CAPSULE PO SCH (09:55)
[2020-05-21] MEDS: ASCORBIC ACID 500 MG TAB PO SCH (09:55)
[2020-05-21] MEDS: METOPROLOL SUCCINATE 50 MG TAB.SR.24H PO SCH ×2 (09:56→21:00)
[2020-05-21] MEDS: FAMOTIDINE/PF 20 MG/2 ML VIAL IV SCH ×2 (09:56→21:00)
[2020-05-21] MEDS: AMIODARONE HCL 200 MG TABLET PO SCH ×2 (09:56→21:00)
[2020-05-21] MEDS ORDERED: PHARMACY COMMUNICATION MISC SCH (12:15)
--- NOTE | 2020-05-21 13:28 | NUR ---
HOSPICE REFERRAL SW spoke to patient's spouse, Ying Gonzalez about order for Hospice. Spouse in agreement and provided consent for [facility]. Plan is for home. Spouse stated that she wanted to use Medicare rather than [facility]. Out of hospital DNR will be completed. Pending availability of Security for witnesses required. SW contacted Coby Vargas, Liaison for [facility] and made her aware of referral. She informed SW that had already made contact with their office on 05/19/2020. Patient information faxed to [facility] for review. MASON, Mariusz Arevlao, made aware.
[2020-05-21] MEDS: PREDNISONE 20 MG TABLET PO SCH (14:20)
--- NOTE | 2020-05-21 19:14 | NUR ---
OUT OF HOSPITAL DNR SW met with patient's spouse, Ying Gonzalez and completed Out of Hospital DNR. Copy faxed to [facility]. SW also spoke to spouse about considering GIP for patient but she stated that patient did not want to in the hospital. Plan is for home. Pending acceptance from [facility].
[2020-05-21] MEDS: ATORVASTATIN CALCIUM 20 MG TABLET PO SCH (21:00)
[2020-05-21] MEDS: DOXYCYCLINE HYCLATE 100 MG TABLET PO SCH (21:00)
[2020-05-22] VITALS (22 sets, daily range): BP systolic 88–131; BP diastolic 46–74
[2020-05-22] MEDS: IPRATROPIUM/ALBUTEROL SULFATE 3 ML SOLUTION IH SCH ×4 (02:29→19:09)
[2020-05-22 03:35] LABS: BASOPHILS % (AUTO) 0.1 % (0.0-5.0); HEMATOCRIT 30.2 % (42-54); LYMPHOCYTES % (AUTO) 1.3 % (21.0-51.0); MEAN CORPUSCULAR HEMOGLOBIN 30.7 pg (27.0-33.0); MEAN CORPUSCULAR HGB CONC 33.8 g/dL (32.0-36.0); MONOCYTES % (AUTO) 3.8 % (3.0-13.0); NEUTROPHILS % (AUTO) 94.1 % (40.0-77.0); PLATELET COUNT (AUTO) 282 K/uL (130-400); RED BLOOD CELL COUNT(AUTO) 3.32 MIL/uL (4.50-6.20); RED CELL DISTRIBUTION WIDTH 15.7 % (11.0-15.5); WHITE BLOOD COUNT (AUTO) 10.7 K/uL (4.8-10.8)
[2020-05-22] MEDS: CEFTRIAXONE SODIUM 1 GM IV SCH (03:50)
[2020-05-22 03:51] LABS: ALBUMIN 2.2 g/dL (3.5-5.0); BILIRUBIN,TOTAL 0.7 mg/dL (0.2-1.0); CREATININE 1.4 mg/dL (0.5-1.5); MAGNESIUM 2.2 mg/dL (1.80-2.40); PHOSPHORUS 3.5 mg/dL (2.5-4.9); TOTAL PROTEIN, SERUM 5.7 g/dL (6.0-8.3)
[2020-05-22 04:09] LABS: CRP QUANTITATIVE 258.8 mg/L (0.00-9.0)
[2020-05-22 04:27] LABS: POTASSIUM 2.8 mmol/L (3.5-5.1)
[2020-05-22] MEDS ORDERED: POTASSIUM CHLORIDE 20MEQ/100ML 100 ML IV ONE ×2 (04:33→08:10)
[2020-05-22] MEDS ORDERED: SODIUM CHLORIDE 0.9% 100 ML IV ONE (04:33)
[2020-05-22] MEDS: FUROSEMIDE 10 MG/ML 2ML VIAL IV SCH ×2 (05:04→18:30)
[2020-05-22] MEDS: DEXMEDETOMIDINE HCL 200 MCG in SODIUM CHLORIDE 0.9% 50 ML IV PRN (06:11)
--- NOTE | 2020-05-22 07:30 | NUR ---
RECEIVING NOTE RECEIVED PT RESTLESS AND AGITATED, REMOVING BIPAP. SATURATING 83%. ON MAX DOSE PRECEDEX. BED IN LOWEST POSITION. FREQUENT REORIENTATION AND MONITORING IN EFFECT.
[2020-05-22] MEDS: ASCORBIC ACID 500 MG TAB PO SCH (09:00)
[2020-05-22] MEDS: HEPARIN SODIUM 5000UNIT/ML 1ML VIAL SQ SCH ×3 (09:00→20:49)
[2020-05-22] MEDS: AMIODARONE HCL 200 MG TABLET PO SCH ×2 (09:00→20:49)
[2020-05-22] MEDS: ZINC SULFATE 220 CAPSULE PO SCH (09:00)
[2020-05-22] MEDS: PREDNISONE 20 MG TABLET PO SCH (09:00)
[2020-05-22] MEDS: METOPROLOL SUCCINATE 50 MG TAB.SR.24H PO SCH ×2 (09:00→20:49)
[2020-05-22] MEDS: DOXYCYCLINE HYCLATE 100 MG TABLET PO SCH ×2 (09:00→20:49)
[2020-05-22] MEDS: CLOPIDOGREL BISULFATE 75 MG TAB PO SCH (09:00)
[2020-05-22] MEDS: FAMOTIDINE/PF 20 MG/2 ML VIAL IV SCH ×2 (09:18→20:48)
--- NOTE | 2020-05-22 11:44 | NUR ---
F/U-Pending Hospice-SW spoke with Sina who reported conversations by staff with pt's spouse and are pending call back with her decision to proceed w/hospice. CM made aware.
--- NOTE | 2020-05-22 16:32 | NUR ---
DC PLAN VISITED WITH PATIENT. SPOKE TO SPOUSE. GOT DIFFERENT INFORMATION FROM DIFFERENT PEOPLE. FINAL TALK PATIENT SPOUSE OKAY WITH GOING HOME. SPOKE TO NURSE AT [facility]. SAID CAN ACCEPTED PATIENT WITH NON REBREATHER. PER NURSE MIGHT NOT BE ABLE TO GET BIPAP TODAY. AT THIS TIME 430 NO CALL BACK. TALKED TO MRS. ZARATE AND EXPLAINED THAT LIKELY WILL HAPPEN TOMORROW. CALIN/PRISCILLA NEEDING TIME TO GET EQUIPMENT AND STAFF. LET ADVERTISING AGENCY MANAGER AND BEDSIDE NURSE KNOW OF CONVERSATIONS. Addendum: 05/22/20 at 1637 by MONTANA RIVERA RN CM Amended: Links added.
[2020-05-22] MEDS: ATORVASTATIN CALCIUM 20 MG TABLET PO SCH (20:49)
[2020-05-23] VITALS (21 sets, daily range): BP systolic 101–150; BP diastolic 40–99
[2020-05-23] MEDS: CEFTRIAXONE SODIUM 1 GM IV SCH (04:26)
[2020-05-23] MEDS: IPRATROPIUM/ALBUTEROL SULFATE 3 ML SOLUTION IH SCH ×4 (06:00→18:39)
[2020-05-23] MEDS: FUROSEMIDE 10 MG/ML 2ML VIAL IV SCH ×3 (06:30→19:47)
[2020-05-23] MEDS: ZINC SULFATE 220 CAPSULE PO SCH (09:00)
[2020-05-23] MEDS: PREDNISONE 20 MG TABLET PO SCH (09:00)
[2020-05-23] MEDS: CLOPIDOGREL BISULFATE 75 MG TAB PO SCH (09:00)
[2020-05-23] MEDS: DOXYCYCLINE HYCLATE 100 MG TABLET PO SCH ×2 (09:00→19:46)
[2020-05-23] MEDS: ASCORBIC ACID 500 MG TAB PO SCH (09:00)
[2020-05-23] MEDS: METOPROLOL SUCCINATE 50 MG TAB.SR.24H PO SCH ×2 (09:00→19:46)
[2020-05-23] MEDS: AMIODARONE HCL 200 MG TABLET PO SCH ×2 (09:00→19:46)
[2020-05-23] MEDS: FAMOTIDINE/PF 20 MG/2 ML VIAL IV SCH ×2 (09:28→19:45)
[2020-05-23] MEDS: HEPARIN SODIUM 5000UNIT/ML 1ML VIAL SQ SCH ×3 (09:29→21:00)
--- NOTE | 2020-05-23 10:37 | NUR ---
Patient unable to tolerate nonbreather with manageable sat's, case management aware patient will need appropriate EMS truck to transfer on bipap; pt between restless & relaxing periods, remains on precedex, npo @ this time, safety maintained.
[2020-05-23] MEDS: DEXMEDETOMIDINE HCL 200 MCG in SODIUM CHLORIDE 0.9% 50 ML IV PRN ×3 (11:15→18:54)
--- NOTE | 2020-05-23 11:22 | NUR ---
New orders noted by PA; informed about questions of plan of care per case management, verified case management pacemaker can be turned off by [employer] company; setting up for bipap transfer, palliative care. lab notified to hold orders; will continue to monitor for safety, patient frequently becomes restless, attempts to disconnect bipap & remove mittens, calming effect/music, remains on precedex.
--- NOTE | 2020-05-23 11:30 | NUR ---
paged dr bazan to question about aicd instructions, awaiting phone call
[2020-05-23] MEDS ORDERED: IPRATROPIUM 0.5 MG/2.5 ML INH IH SCH (12:00)
[2020-05-23] MEDS: METHYLPREDNISOLONE SOD SUCC 125MG/2ML VIAL IVP SCH ×3 (12:26→22:45)
--- NOTE | 2020-05-23 13:22 | NUR ---
Defibrillator turned off by [employer] insurance service representative, case management notified.
--- NOTE | 2020-05-23 14:15 | NUR ---
@ bs, speaking with case management; awaiting final hospice equipment delivery to home, plan to transfer today.
--- NOTE | 2020-05-23 16:42 | NUR ---
Case management and family member/hospice made aware of bipap max settings @ home, change of plans to admit to inpatient hospice on 4th floor, pending transfer orders, remains @ bs.
[2020-05-23] MEDS: BUDESONIDE 0.5 MG/2 ML INH IH SCH (18:47)
[2020-05-23] MEDS: ATORVASTATIN CALCIUM 20 MG TABLET PO SCH (19:46)
[2020-05-24] VITALS (10 sets, daily range): BP systolic 118–149; BP diastolic 51–98
[2020-05-24] MEDS: IPRATROPIUM/ALBUTEROL SULFATE 3 ML SOLUTION IH SCH ×3 (00:19→11:59)
[2020-05-24] MEDS: ZIPRASIDONE MESYLATE 20 MG/VIAL IM PRN (05:04)
[2020-05-24] MEDS: METHYLPREDNISOLONE SOD SUCC 125MG/2ML VIAL IVP SCH ×2 (05:05→10:34)
[2020-05-24] MEDS: CEFTRIAXONE SODIUM 1 GM IV SCH (05:05)
[2020-05-24] MEDS: BUDESONIDE 0.5 MG/2 ML INH IH SCH (06:12)
[2020-05-24] MEDS: FUROSEMIDE 10 MG/ML 2ML VIAL IV SCH (07:14)
[2020-05-24 08:22] LABS: BASOPHILS % (AUTO) 0.1 % (0.0-5.0); CREATININE 1.3 mg/dL (0.5-1.5); LYMPHOCYTES % (AUTO) 1.9 % (21.0-51.0); MAGNESIUM 2.7 mg/dL (1.80-2.40); MEAN CORPUSCULAR HEMOGLOBIN 30.8 pg (27.0-33.0); MEAN CORPUSCULAR VOLUME 96.2 fL (79-99); MONOCYTES % (AUTO) 3.8 % (3.0-13.0); NEUTROPHILS % (AUTO) 93.6 % (40.0-77.0); PLATELET COUNT (AUTO) 288 K/uL (130-400); POTASSIUM 3.3 mmol/L (3.5-5.1); RED BLOOD CELL COUNT(AUTO) 3.12 MIL/uL (4.50-6.20); RED CELL DISTRIBUTION WIDTH 16.4 % (11.0-15.5); WHITE BLOOD COUNT (AUTO) 9.6 K/uL (4.8-10.8)
[2020-05-24] MEDS: DOXYCYCLINE HYCLATE 100 MG TABLET PO SCH (08:27)
[2020-05-24] MEDS: CLOPIDOGREL BISULFATE 75 MG TAB PO SCH (08:27)
[2020-05-24] MEDS: AMIODARONE HCL 200 MG TABLET PO SCH (08:27)
[2020-05-24] MEDS: ASCORBIC ACID 500 MG TAB PO SCH (08:28)
[2020-05-24] MEDS: ZINC SULFATE 220 CAPSULE PO SCH (08:28)
[2020-05-24] MEDS: METOPROLOL SUCCINATE 50 MG TAB.SR.24H PO SCH (08:28)
[2020-05-24] MEDS: HEPARIN SODIUM 5000UNIT/ML 1ML VIAL SQ SCH (08:28)
[2020-05-24] MEDS: FAMOTIDINE/PF 20 MG/2 ML VIAL IV SCH (08:28)
[2020-05-24 08:55] LABS: B-TYPE NATRIURETIC PEPTIDE 2620 pg/mL (0-100)
[2020-05-24] MEDS: DEXMEDETOMIDINE HCL 200 MCG in SODIUM CHLORIDE 0.9% 50 ML IV PRN (11:25)
--- NOTE | 2020-05-24 11:50 | NUR ---
DC PLAN GOT APPROVAL FOR FAMILY TO STAY WITH PATIENT. CONNOR FRANKLIN, NURSE, FAMILY KNOW. NURSE AT BEDSIDE TO ADMIT PATIENT. Addendum: 05/24/20 at 1158 by MONTANA RIVERA RN CM Amended: Links added.
== END 2020-05-24 12:14 | DRG 871 ==
LOC: EDH 02:31 → EDHIP 04:36 → 2CH 09:02 → DAHIP 05-20 18:55
PROVIDERS: ADMIT Internal Medicine; ATTEND Internal Medicine
DX: A41.9 Sepsis, unspecified organism (principal); J96.21 Acute and chronic respiratory failure with hypoxia; J18.9 Pneumonia, unspecified organism; I50.43 Acute on chronic combined systolic (congestive) and diastolic (congestive) heart failure; G93.40 Encephalopathy, unspecified; I47.2 Ventricular tachycardia; I11.0 Hypertensive heart disease with heart failure; I25.10 Atherosclerotic heart disease of native coronary artery without angina pectoris; E87.6 Hypokalemia; I48.91 Unspecified atrial fibrillation; Z20.828 Contact with and (suspected) exposure to other viral communicable diseases; B96.89 Other specified bacterial agents as the cause of diseases classified elsewhere; D64.9 Anemia, unspecified; E03.9 Hypothyroidism, unspecified; E78.5 Hyperlipidemia, unspecified; I25.5 Ischemic cardiomyopathy; I73.9 Peripheral vascular disease, unspecified; J43.9 Emphysema, unspecified; J84.10 Pulmonary fibrosis, unspecified; M48.00 Spinal stenosis, site unspecified; M54.17 Radiculopathy, lumbosacral region; N19 Unspecified kidney failure; Z51.5 Encounter for palliative care; Z66 Do not resuscitate; Z72.0 Tobacco use; Z79.02 Long term (current) use of antithrombotics/antiplatelets; Z79.82 Long term (current) use of aspirin; Z79.899 Other long term (current) drug therapy; Z95.810 Presence of automatic (implantable) cardiac defibrillator; Z95.1 Presence of aortocoronary bypass graft; Z95.0 Presence of cardiac pacemaker; Z87.19 Personal history of other diseases of the digestive system; Z86.14 Personal history of Methicillin resistant Staphylococcus aureus infection; Z83.3 Family history of diabetes mellitus; Z82.5 Family history of asthma and other chronic lower respiratory diseases; Z82.3 Family history of stroke; Z82.0 Family history of epilepsy and other diseases of the nervous system; Z82.49 Family history of ischemic heart disease and other diseases of the circulatory system
CPT/HCPCS: 36415; 36600; 71045; 71275; 80048; 80053; 81003; 82550; 82728; 82803; 82948; 83605; 83615; 83735; 83874; 83880; 84100; 84132; 84145; 84484; 85025; 85378; 85610; 85730; 86140; 86900; 86901; 87040; 87088; 87426; 87486; 87581; 87633; 87798; 87804; 93005; 94640; 94660; 94664; G0378; J0456; J0696; J1200; J1644; J1940; J2405; J2930; J3475; J3480; J3486; J3490; U0003

== ENCOUNTER 2020-05-24 12:15 | Inpatient (IN) | payer OTHER ==
[~2020-05-24] VITALS: Ht 172.7 cm; Wt 68.9 kg
[2020-05-24] MEDS ORDERED: ONDANSETRON HCL 4 MG/2 ML VIAL IVP PRN (13:30)
[2020-05-24] MEDS ORDERED: DEXMEDETOMIDINE HCL 1,000 MCG in SODIUM CHLORIDE 0.9% 250 ML IV SCH (13:30)
[2020-05-24] MEDS ORDERED: DEXMEDETOMIDINE HCL 400 MCG in SODIUM CHLORIDE 0.9% 100 ML IV SCH ×4 (13:30)
[2020-05-24] MEDS ORDERED: BISACODYL 10 MG SUPP.RECT RC PRN (13:30)
[2020-05-24] MEDS: GLYCOPYRROLATE 1 MG/5 ML SYRINGE IV SCH ×3 (14:27→22:31)
--- NOTE | 2020-05-24 14:28 | NUR ---
received report from chavo dunn care pt is hospice. safety maintained.
[2020-05-24] MEDS: LORAZEPAM 2 MG/ML 1 ML VIAL IVP PRN ×2 (14:50→18:22)
[2020-05-24] MEDS: MORPHINE SULFATE 2 MG/ML 1ML SYG IV PRN ×2 (14:50→18:22)
[2020-05-24] MEDS ORDERED: MORPHINE-NS 50 MG/50 ML 50 ML IV PRN (15:15)
[2020-05-24] MEDS ORDERED: SODIUM CHLORIDE 0.9% 500ML 500 ML IV ONE (16:12)
--- NOTE | 2020-05-24 17:46 | NUR ---
FAISAL CHARGED NURSE CONTACTED HOSPICE MD. HUSSEIN BLACKWELL, STARTED MORPHINE DRIP 2MG. PT ON BIPAP. TIMED MEDICATION GIVEN, CLEANED AND CHANGED PT. SAFETY MAINTAINED.
[2020-05-24 22:40] VITALS: BP 93/54
[2020-05-25] MEDS: GLYCOPYRROLATE 1 MG/5 ML SYRINGE IV SCH ×4 (02:33→13:29)
--- NOTE | 2020-05-25 07:30 | NUR ---
RESPIRATORY HERE TO WEAN PT FROM BIPAP. FAMILY AT BEDSIDE, COMFORT MEASURES PROVIDED
--- NOTE | 2020-05-25 07:45 | NUR ---
NO NEW CHANGES.
--- NOTE | 2020-05-25 08:00 | NUR ---
ALL FAMILY MEMBERS ARE HERE, , SON AND DAUGHTER IN LAW. PT IN NOW ON A 50% VENTI MASK IN A HIGH FOWLERS POSITION, FAN PROVIDED FOR COMFORT. COMFORT CARE CONTINUED
--- NOTE | 2020-05-25 09:56 | NUR ---
ROUNDS MADE, CONTINUED COMFORT CARE GIVEN, HIGH LEE'S POSITION WITH 50% VENTI MASK IN PLACE, FAMILY PRESENT
--- NOTE | 2020-05-25 10:18 | NUR ---
FAMILY ARE CURRENTLY OUT OF THE ROOM TO HAVE BREAKFAST. UNABLE TO EAT IN THE ROOM OR CAFETERIA
--- NOTE | 2020-05-25 10:47 | NUR ---
FAMILY HAVE RETURNED TO THE ROOM, CONTINUED COMFORT MEASURES FOR PATIENT
[2020-05-25 11:00] VITALS: BP 69/36
--- NOTE | 2020-05-25 11:43 | NUR ---
ERICKSON FROM [facility] HERE TO SEE PT
--- NOTE | 2020-05-25 12:10 | NUR ---
ROUNDS MADE, NO NEW CHANGES, FAMILY AT BEDSIDE
--- NOTE | 2020-05-25 13:57 | NUR ---
CONTINUED COMFORT CARE WITH PT ON 50% VENTI MASK. SLOW RESP, HIGH LEE'S POSITION. NO CURRENT S/S OF PAIN OR DISTRESS, FAMILY AT BEDSIDE
--- NOTE | 2020-05-25 15:58 | NUR ---
ROUNDS MADE, NO NEW CHANGES IN PATIENT STATUS
--- NOTE | 2020-05-25 16:17 | NUR ---
PT PRONOUNCED BY HOME THEATER INSTALLER DORIS. FAMILY HERE. PTS [place] RING AND MEDALLION WITH FAMILY. CONTINUED ARRANGEMENTS FOR HOME IN PROGRESS
--- NOTE | 2020-05-25 16:30 | NUR ---
DR MILNER NOTIFIED OF PT EXPIRATION. FAMILY REMAINS AT BEDSIDE. [facility] NOTIFIED,ALSO.
--- NOTE | 2020-05-25 17:06 | NUR ---
PREPARATIONS MADE FOR [place] [facility] [place] [facility].
--- NOTE | 2020-05-25 17:50 | NUR ---
THE BODY IS PREPARED FOR TRANSP[place] [facility] [place]
--- NOTE | 2020-05-25 18:52 | NUR ---
PT TRANSPORTED TO THE [facility] [place] SECURITY IN GOOD CONDITION, WITH IV(S) REMOVED AND PROPER TAGS APPLIED
== END 2020-05-25 16:17 | disposition expired | DRG 193 ==
LOC: DAHIP 12:15 → 4BH 14:17
PROVIDERS: ADMIT Internal Medicine Hematology & Oncology; ATTEND Internal Medicine Hematology & Oncology
DX: J18.9 Pneumonia, unspecified organism (principal); J96.01 Acute respiratory failure with hypoxia
CPT/HCPCS: 94660; G0378; J2060; J2270; J3490; J7040; J7050